=== PATIENT | female | born 1940 | race Asian ===

== ENCOUNTER → 2017-05-08 | Outpatient (CLI) | payer OTHER, MEDICARE | LOC: BMCIMAGING 13:18 | PROVIDERS: ATTEND Internal Medicine | DX: Z12.31 Encounter for screening mammogram for malignant neoplasm of breast (principal); Z13.820 Encounter for screening for osteoporosis; M85.80 Other specified disorders of bone density and structure, unspecified site; R05 Cough | CPT/HCPCS: G0202 ==

== ENCOUNTER → 2017-10-13 | Outpatient (CLI) | payer OTHER, MEDICARE | LOC: FIMAGING 08:15 | PROVIDERS: ATTEND Physical Medicine & Rehabilitation | DX: M51.36 Other intervertebral disc degeneration, lumbar region (principal); M51.37 Other intervertebral disc degeneration, lumbosacral region; M48.061 Spinal stenosis, lumbar region without neurogenic claudication; M43.16 Spondylolisthesis, lumbar region; M12.88 Other specific arthropathies, not elsewhere classified, other specified site; M51.26 Other intervertebral disc displacement, lumbar region; N28.1 Cyst of kidney, acquired ==

== ENCOUNTER → 2018-05-24 | Outpatient (CLI) | payer OTHER, MEDICARE | LOC: BMCIMAGING 12:10 | PROVIDERS: ATTEND Internal Medicine | DX: Z12.31 Encounter for screening mammogram for malignant neoplasm of breast (principal) ==